=== PATIENT | male | born 1995 | race Hispanic/Latino ===

== ENCOUNTER 2017-03-17 13:18 | Emergency (ER) | payer BC ==
[2017-03-17 13:24] VITALS: BMI 36.9
[2017-03-17 13:28] VITALS: RESP 18; TEMP 98.7; O2SAT 98
[2017-03-17] MEDS ORDERED: Sodium Chloride 0.9% 1,000 ML IV STA (13:47)
--- NOTE | 2017-03-17 13:56 | ED PDOC ---
Arrival/HPI - General Chief Complaint: Abdominal Pain Time Seen by Provider: 03/17/17 13:20 Historian: Patient - History of Present Illness Narrative History of Present Illness (Text): 03/17/17 13:40 Bari Hodge is a 22 year old male who presents to the emergency department for 2-3 days of intermittent upper abdominal pain. Pain is non-radiating. Symptoms are accompanied with mild nausea but no vomiting or genitourinary symptoms. Patient states this has never happened before. Symptoms are alleviated with Tums and burping. Patient a not a smoker, drug user or drinker. PMD: None Reported. Associated Symptoms (Text): 03/17/17 14:49 Several day history of intermittent upper abdominal pain with no radiation. No vomiting or diarrhea. No genitourinary symptoms. No back pain. Some relief with antacids. No chest pain palpitations or dyspnea. No fever or chills. No trauma. Past Medical History - Provider Review Nursing Documentation Reviewed: Yes - Musculoskeletal/Rheumatological Hx Musculoskeletal Disorders: Yes Other/Comment: broken L wrist, fracture. - Psychiatric Hx Substance Use: No - Anesthesia Hx Anesthesia: No Family/Social History - Physician Review Nursing Documentation Reviewed: Yes Family/Social History: No Known Family HX Smoking Status: Never Smoked Hx Alcohol Use: No Hx Substance Use: No Allergies/Home Meds Allergies/Adverse Reactions: Allergies No Known Allergies Allergy (Verified 03/17/17 13:24) Home Medications: Home Meds Medication Instructions Recorded Confirmed Amoxicillin [Amoxicillin] 500 mg PO DAILY 03/17/17 03/17/17 Review of Systems - Physician Review All systems were reviewed & negative as marked: Yes - Review of Systems Constitutional: Normal. absent: Fevers Respiratory: Normal. absent: SOB Cardiovascular: Normal. absent: Chest Pain Gastrointestinal: Abdominal Pain, Nausea (Mild). absent: Diarrhea, Vomiting Genitourinary Male: Normal. absent: Dysuria, Frequency, Hematuria, Urinary Output Changes Skin: Normal Neurological: Normal. absent: Headache, Dizziness Physical Exam Vital Signs Reviewed: Yes Vital Signs Temp Pulse Resp BP Pulse Ox 03/17/17 15:17 78 18 129/81 98 03/17/17 13:27 98.7 F 90 18 147/84 98 Temperature: Afebrile Blood Pressure: Normal Pulse: Regular Respiratory Rate: Normal Appearance: Positive for: Well-Appearing, Non-Toxic, Comfortable, Other (Obese) Pain Distress: None Mental Status: Positive for: Alert and Oriented X 3 - Systems Exam Head: Present: Atraumatic, Normocephalic Pupils: Present: PERRL Extroacular Muscles: Present: EOMI Conjunctiva: Present: Normal Mouth: Present: Moist Mucous Membranes Pharnyx: No: ERYTHEMA, EXUDATE, TONSILS ENLARGED Neck: Present: Normal Range of Motion Respiratory/Chest: Present: Clear to Auscultation, Good Air Exchange. No: Respiratory Distress, Accessory Muscle Use Cardiovascular: Present: Regular Rate and Rhythm, Normal S1, S2. No: Murmurs Abdomen: Present: Tenderness (Mild Epigastric Tenderness & Mild RUQ tenderness) , Normal Bowel Sounds. No: Distention, Peritoneal Signs, Rebound, Guarding Back: Present: Normal Inspection Upper Extremity: Present: Normal Inspection. No: Cyanosis, Edema Lower Extremity: Present: Normal Inspection. No: Edema Neurological: Present: GCS=15, CN II-XII Intact, Speech Normal, Motor Func Grossly Intact Skin: Present: Warm, Dry, Normal Color. No: Rashes Psychiatric: Present: Alert, Oriented x 3, Normal Insight, Normal Concentration Medical Decision Making ED Course and Treatment: 03/17/17 13:40 Impression: 22 year old male with intermittent upper abdominal pain. Symptoms are accompanied with mild nausea. Plan: -- Abdomen US -- Labs -- Protonix -- IV Fluids -- Toradol -- Zofran -- Reassess and disposition Progress Notes: 03/17/17 15:00 Procedure: Abdomen US Dictator: Jame Wilkins MD Impression: Mild fatty infiltration of the liver. Otherwise unremarkable examination. 03/17/17 15:09 Symptoms have improved - Lab Interpretations Lab Results: 03/17/17 14:05 03/17/17 14:05 Lab Results 03/17/17 14:05: Sodium 143, Potassium 3.9, Chloride 103, Carbon Dioxide 26, Anion Gap 18, BUN 13, Creatinine 0.9, Est GFR ( Amer) > 60, Est GFR (Non- Af Amer) > 60, Random Glucose 91, Calcium 9.6, Total Bilirubin 2.4 H, AST 29, ALT 40, Alkaline Phosphatase 60, Total Protein 8.8 H, Albumin 5.1 H, Globulin 3.7, Albumin/Globulin Ratio 1.4, Lipase 42 03/17/17 14:05: PT 11.9 H, INR 1.10 H, APTT 30.6 03/17/17 14:05: WBC 6.7, RBC 5.32, Hgb 14.0, Hct 42.3, MCV 79.5 L, MCH 26.3, MCHC 33.1, RDW 13.2, Plt Count 226, MPV 10.4, Gran % 67.1, Lymph % (Auto) 25.5, [place] % (Auto) 6.6 H, Eos % (Auto) 0.5 L, Baso % (Auto) 0.3, Gran # 4.47, Lymph # 1.7, [place] # 0.4, Eos # 0.0, Baso # 0.02 - RAD Interpretation Narrative RAD Interpretations (Text): 03/17/17 15:00 Procedure: Abdomen US Dictator: Jame Wilkins MD FINDINGS: LIVER: Measures 16.6 cm. Mild diffusely increased echogenicity of the liver parenchyma. No mass. No intrahepatic bile duct dilatation. GALLBLADDER: Unremarkable. No gallstones. COMMON BILE DUCT: Measures 3 mm. No stones. No dilatation. PANCREAS: Unremarkable as visualized. No mass. No ductal dilatation. RIGHT KIDNEY: Measures 11.9cm. Normal echogenicity. No calculus, mass, or hydronephrosis. LEFT KIDNEY: Measures 11.5cm. Normal echogenicity. No calculus, mass, or hydronephrosis. SPLEEN: Normal in size and contour. No mass. AORTA: No aneurysmal dilatation. IVC: Unremarkable. OTHER FINDINGS: None. Impression: Mild fatty infiltration of the liver. Otherwise unremarkable examination. Radiology Orders: 03/17/17 13:47 ABDOMEN COMPLETE [US] Stat Ultrasound of the abdomen is read by the radiologist shows a fatty liver, otherwise within normal limits. Measurement And Sensing Technician: Radiologist - Medication Orders Current Medication Orders: Discontinued Medications Sodium Chloride (Sodium Chloride 0.9%) 1,000 mls @ 1,000 mls/hr IV .Q1H STA Stop: 03/17/17 14:46 Last Admin: 03/17/17 14:02 Dose: 1,000 mls/hr Ketorolac Tromethamine (Toradol) 30 mg IVP STAT STA Stop: 03/17/17 13:48 Last Admin: 03/17/17 14:01 Dose: 30 mg Ondansetron HCl (Zofran Inj) 4 mg IVP STAT STA Stop: 03/17/17 13:48 Last Admin: 03/17/17 14:02 Dose: 4 mg Pantoprazole Sodium (Protonix Inj) 40 mg IVP STAT STA Stop: 03/17/17 13:48 Last Admin: 03/17/17 14:01 Dose: 40 mg - Renayibe Statement The provider has reviewed the documentation as recorded by the Kulwant Vaz Provider Attestation: All medical record entries made by the Kulwant were at my direction and personally dictated by me. I have reviewed the chart and agree that the record accurately reflects my personal performance of the history, physical exam, medical decision making, and the department course for this patient. I have also personally directed, reviewed, and agree with the discharge instructions and disposition. Disposition/Present on Arrival - Present on Arrival Any Indicators Present on Arrival: No History of DVT/PE: No History of Uncontrolled Diabetes: No Urinary Catheter: No History of Decub. Ulcer: No History Surgical Site Infection Following: None - Disposition Have Diagnosis and Disposition been Completed?: Yes Diagnosis: Abdominal pain Disposition: HOME/ ROUTINE Disposition Time: 15:10 Patient Plan: Discharge Condition: IMPROVED Discharge Instructions (ExitCare): Acute Abdominal Pain (ED) Additional Instructions: Soft diet. 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 Follow up in ER as needed. Prescriptions: Pantoprazole Sodium [Protonix] 40 mg PO DAILY #20 ect Ondansetron [Zofran Odt] 4 mg SL Q6 #20 odt Referrals: Mark Pickering [Primary Care Provider] - Follow up with primary Satish Raimrez DO [Staff Provider] - Follow up with primary Forms: WORK NOTE, SCHOOL NOTE
[2017-03-17 14:07] LABS: ADD MANUAL DIFF? NO
[2017-03-17 14:20] LABS: BASO # 0.02 K/mm3 (0.0-2.0); BASO % 0.3 % (0.0-3.0); EOS % 0.5 % (1.5-5.0); GRAN # 4.47 (1.4-6.5); GRAN % 67.1 % (50.0-68.0); HEMATOCRIT 42.3 % (42.0-52.0); LYMPH # 1.7 (1.2-3.4); LYMPH % 25.5 % (22.0-35.0); MEAN CELL VOLUME 79.5 fL (80.0-105.0); MEAN CORPUSCULAR HEMOGLOBIN 26.3 pg (25.0-35.0); MEAN CORPUSCULAR HGB CONC 33.1 g/dl (31.0-37.0); MEAN PLATELET VOLUME 10.4 fl (7.0-11.0); MONO # 0.4 (0.1-0.6); MONO % 6.6 % (1.0-6.0); PLATELET COUNT 226 10^3/uL (120.0-450.0); RED CELL DISTRIBUTION WIDTH 13.2 % (11.5-14.5); WHITE BLOOD COUNT 6.7 10^3/ul (4.5-11.0)
[2017-03-17 14:22] LABS: INR 1.1 (0.93-1.08); PARTIAL THROMBOPLASTIN TIME 30.6 Seconds (23.7-30.8)
[2017-03-17 14:25] LABS: ALB/GLOB RATIO 1.4 (1.1-1.8); ALKALINE PHOSPHATASE 60 U/L (38-133); ALT/SGPT 40 U/L (7-56); AST/SGOT 29 U/L (15-59); BILIRUBIN,TOTAL 2.4 mg/dL (0.2-1.3); BLOOD UREA NITROGEN 13 mg/dL (7-21); CALCIUM 9.6 mg/dL (8.4-10.5); CARBON DIOXIDE 26 mmol/L (21-33); CHLORIDE 103 mmol/L (95-110); GFR AFRICAN-AMERICAN > 60; GLUCOSE,RANDOM 91 mg/dL (70-110); LIPASE 42 U/L (23-300); POTASSIUM 3.9 mmol/L (3.6-5.0); SODIUM 143 mmol/L (132-148); TOTAL PROTEIN 8.8 g/dL (5.8-8.3)
--- NOTE | 2017-03-17 15:02 | US ---
HISTORY: RUQ pain COMPARISON: None. TECHNIQUE: Sonographic evaluation of the abdomen. FINDINGS: LIVER: Measures 16.6 cm. Mild diffusely increased echogenicity of the liver parenchyma. No mass. No intrahepatic bile duct dilatation. GALLBLADDER: Unremarkable. No gallstones. COMMON BILE DUCT: Measures 3 mm. No stones. No dilatation. PANCREAS: Unremarkable as visualized. No mass. No ductal dilatation. RIGHT KIDNEY: Measures 11.9cm. Normal echogenicity. No calculus, mass, or hydronephrosis. LEFT KIDNEY: Measures 11.5cm. Normal echogenicity. No calculus, mass, or hydronephrosis. SPLEEN: Normal in size and contour. No mass. AORTA: No aneurysmal dilatation. IVC: Unremarkable. OTHER FINDINGS: None. IMPRESSION: Mild fatty infiltration of the liver. Otherwise unremarkable examination.
[2017-03-17 15:23] VITALS: BP 129/81; PULSE 78
== END 2017-03-17 15:23 | disposition home or self-care (01) ==
LOC: ED 13:18
DX: R10.9 Unspecified abdominal pain (principal)
CPT/HCPCS: 76700; 80053; 83690; 85025; 85610; 85730; 96361; 96374; 96375; 99283; C9113; J1885; J2405; J7040